=== PATIENT | female | born 1975 | race African-American/Black ===

== ENCOUNTER 2019-11-02 12:19 | Emergency (ER) | payer SELFPAY ==
--- NOTE | 2019-11-02 13:39 | ER ---
Nurse's Notes [facility] Name: Pinky Angel Age: 44 yrs Sex: Female : 1975 Arrival Date: 11/02/2019 Time: 12:22 Bed 11 Private MD: Diagnosis: Encounter for general adult medical examination without abnormal findings;Medical Screening Presentation: 11/01 12:27 Chief complaint: Patient states: Here to be checked for covid since her significant ll1 other is here for chu test. Denies cough/fever. No pain. Coronavirus screen: Proceed with normal triage. Patient denies a cough. Patient denies shortness of breath or difficulty breathing. Patient denies measured and/or subjective temperature greater than 100.4F prior to today's visit. Patient denies travel on a cruise ship or to a country the [facility] currently lists as an affected area. Patient denies contact with known and/or suspected case of COVID-19. Ebola Screen: Patient denies travel to an Ebola-affected area in the 21 days before illness onset. Initial Sepsis Screen: Does the patient meet any 2 criteria? No. Patient's initial sepsis screen is negative. Risk Assessment: Do you want to hurt yourself or someone else? Patient reports no desire to harm self or others. Onset of symptoms was November 02, 2019. 12:27 Method Of Arrival: Ambulatory ll1 12:27 Acuity: DAWNA 5 ll1 Historical: - Allergies: 12:29 PENICILLINS; ll1 - PMHx: 12:29 None; ll1 - PSHx: 12:29 breast lift; ll1 - Social history:: Smoking status: Patient reports the use of cigarette tobacco products, cigars, Patient uses alcohol, occasionally. Patient/guardian denies using street drugs. Screenin:37 Abuse screen: Denies threats or abuse. Denies injuries from another. Nutritional ss screening: No deficits noted. Tuberculosis screening: No symptoms or risk factors identified. Never had TB. Fall Risk None identified. Assessment: 13:37 General: Appears in no apparent distress. comfortable, Behavior is calm, cooperative, ss Denies fever, feeling ill, fatigue, chills. Pain: Denies pain. Neuro: Level of Consciousness is awake, alert, obeys commands, Oriented to person, place, time, situation. Respiratory: Airway is patent Respiratory effort is even, unlabored, Respiratory pattern is regular, symmetrical. GI: No signs and/or symptoms were reported involving the gastrointestinal system. EENT: Nares are clear. Derm: Skin is intact, is healthy with good turgor, Skin is dry, Skin is pink, warm \T\ dry. normal. Musculoskeletal: Circulation, motion, and sensation intact. Range of motion: intact in all extremities, Swelling absent. Vital Signs: 12:27 BP 138 / 81; Pulse 78; Resp 18; Temp 98.3; Pulse Ox 100% ; Pain 0/10; ll1 ED Course: 12:22 Patient arrived in ED. fj1 12:28 Triage completed. ll1 12:29 Arm band placed on Patient notified of wait time. ll1 13:34 Elliott Willis PA is PHCP. jr8 13:34 Brown Valle MD is Attending Physician. jr8 13:37 Patient has correct armband on for positive identification. Bed in low position. Call ss light in reach. 13:37 No provider procedures requiring assistance completed. Patient did not have IV access ss during this emergency room visit. Administered Medications: No medications were administered Outcome: 13:37 Medical screen evaluation completed per provider. Patient declined treatment. ss 13:37 Condition: good 13:37 Instructed on discharge instructions. 13:38 Discharge ordered by . jr8 13:40 Patient left the ED. ss Signatures: Lainey Valerio, RN RN Elliott Willis PA PA jr8 Joao Bran 1 Mireya Goode RN RN 1
--- NOTE | 2019-11-02 13:39 | EDPHYS ---
Physician Documentation [facility] Name: Pinky Angel Age: 44 yrs Sex: Female : 1975 Arrival Date: 11/02/2019 Time: 12:22 Bed 11 Private MD: ED Physician Brown Valle HPI: 11/01 16:06 This 44 yrs old Black Female presents to ER via Ambulatory with complaints of COVID jr8 SYMPTOMS. 16:06 Associated signs and symptoms: The patient has no apparent associated signs or jr8 symptoms. The patient has not experienced similar symptoms in the past. The patient has not recently seen a physician. Patient stated that she was sent to ED by her boss to be tested for COVID. Denies symptoms. Was told it was free of charge to be tested here . Historical: - Allergies: 12:29 PENICILLINS; ll1 - PMHx: 12:29 None; ll1 - PSHx: 12:29 breast lift; ll1 - Social history:: Smoking status: Patient reports the use of cigarette tobacco products, cigars, Patient uses alcohol, occasionally. Patient/guardian denies using street drugs. ROS: 16:06 Eyes: Negative for injury, pain, redness, and discharge, ENT: Negative for injury, jr8 pain, and discharge, Neck: Negative for injury, pain, and swelling, Cardiovascular: Negative for chest pain, palpitations, and edema, Respiratory: Negative for shortness of breath, cough, wheezing, and pleuritic chest pain, Abdomen/GI: Negative for abdominal pain, nausea, vomiting, diarrhea, and constipation, Back: Negative for injury and pain, MS/Extremity: Negative for injury and deformity, Skin: Negative for injury, rash, and discoloration, Neuro: Negative for headache, weakness, numbness, tingling, and seizure. Exam: 16:06 Eyes: Pupils equal round and reactive to light, extra-ocular motions intact. Lids and jr8 lashes normal. Conjunctiva and sclera are non-icteric and not injected. Cornea within normal limits. Periorbital areas with no swelling, redness, or edema. ENT: Nares patent. No nasal discharge, no septal abnormalities noted. Tympanic membranes are normal and external auditory canals are clear. Oropharynx with no redness, swelling, or masses, exudates, or evidence of obstruction, uvula midline. Mucous membranes moist. Neck: Trachea midline, no thyromegaly or masses palpated, and no cervical lymphadenopathy. Supple, full range of motion without nuchal rigidity, or vertebral point tenderness. No Meningismus. Cardiovascular: Regular rate and rhythm with a normal S1 and S2. No gallops, murmurs, or rubs. Normal PMI, no JVD. No pulse deficits. Respiratory: Lungs have equal breath sounds bilaterally, clear to auscultation and percussion. No rales, rhonchi or wheezes noted. No increased work of breathing, no retractions or nasal flaring. Abdomen/GI: Soft, non-tender, with normal bowel sounds. No distension or tympany. No guarding or rebound. No evidence of tenderness throughout. Back: No spinal tenderness. No costovertebral tenderness. Full range of motion. Skin: Warm, dry with normal turgor. Normal color with no rashes, no lesions, and no evidence of cellulitis. MS/ Extremity: Pulses equal, no cyanosis. Neurovascular intact. Full, normal range of motion. Neuro: Awake and alert, GCS 15, oriented to person, place, time, and situation. Cranial nerves II-XII grossly intact. Motor strength 5/5 in all extremities. Sensory grossly intact. Cerebellar exam normal. Normal gait. Vital Signs: 12:27 BP 138 / 81; Pulse 78; Resp 18; Temp 98.3; Pulse Ox 100% ; Pain 0/10; ll1 MDM: 13:35 Patient medically screened. jr8 13:37 Data reviewed: vital signs, nurses notes. Medical screen evaluation completed. [facility] katherine emergency medical condition absent. 16:06 Data interpreted: Pulse oximetry: on room air is 100 %. Interpretation: normal. jr8 Counseling: I had a detailed discussion with the patient and/or guardian regarding: the historical points, exam findings, and any diagnostic results supporting the discharge/admit diagnosis, the need for outpatient follow up. 16:13 ED course: Referred patient to off site testing facility . jr8 Administered Medications: No medications were administered Disposition: 13:37 Encounter for COVID 19 Screening. jr8 19:38 Co-signature as Attending Physician, Brown Valle MD. mh7 Disposition: 11/02/19 13:38 Discharged to Home. Impression: Encounter for general adult medical examination without abnormal findings, Medical Screening . - Condition is Stable. - Discharge Instructions: COVID-19. - Medication Reconciliation Form, Thank You Letter, Antibiotic Education, Prescription Opioid Use form. - Follow up: Private Physician; When: As needed; Reason: Recheck today's complaints, Re-evaluation by your physician. - Problem is new. - Symptoms are unchanged. Signatures: Lainey Valerio RN RN Elliott Willis PA PA jr8 Mireya Goode RN RN ll1 Brown Valle MD MD 7 Corrections: (The following items were deleted from the chart) 13:40 13:38 11/02/2019 13:38 Discharged to Home. Impression: Encounter for general adult ss medical examination without abnormal findings; Medical Screening . Condition is Stable. Forms are Medication Reconciliation Form, Thank You Letter, Antibiotic Education, Prescription Opioid Use. Follow up: Private Physician; When: As needed; Reason: Recheck today's complaints, Re-evaluation by your physician. Problem is new. Symptoms are unchanged. jr8
[2019-11-02 13:53] VITALS: BP 138/81; TEMP 98.3; O2SAT 100
== END 2019-11-02 13:40 | disposition home or self-care (01) ==
LOC: ER 12:19
DX: Z00.00 Encounter for general adult medical examination without abnormal findings (principal)
CPT/HCPCS: 99281

== ENCOUNTER 2020-09-11 01:17 | Emergency (ER) | payer SELFPAY ==
--- OUTSIDE RECORDS SUMMARY | 2020-09-11 01:20 | XMS REPORT | Continuity of Care Document ---
:1975 Author Organization [facility] t Address [address] [place] [address] Care Team Providers Name Role Phone Unavailable Unavailable Unavailable Payers Payer Name Policy Type Policy Number Effective Date Expiration Date S ource Problems This patient has no known problems. Allergies, Adverse Reactions, Alerts Allergy Allergy Status Severity Reaction(s) Onset Inactive Treating Comm ents Source Name Type Date Date Clinician [place] DA Active [facility] ins 01-26 [place] 00:00: Health 00 are [facility] st Medications This patient has no known medications. Procedures This patient has no known procedures. Results Test Description Test Time Test Comments Results Result Comments Source TROPONIN-I 2019-01-26 17:55:00 Test Item Value Reference Range Interpretation Comme nts TROPONIN-I (test code = TROPI) <0.020 ng/mL 0.000-0.034 N BASIC METABOLIC [id number] 17:48:00 Test Item Value Reference Range Interpretation Comments SODIUM (test code 137 mmol/L 135-145 N = NA) POTASSIUM (test 3.3 mmol/L 3.6-5.0 L code = K) CHLORIDE (test 105 mmol/L 101-111 N code = CL) CARBON DIOXIDE 24 mmol/L 21-31 N (test code = CO2) GLUCOSE (test code 94 mg/dl 70-100 N = GLU) BLOOD UREA 12 mg/dl 6-20 N NITROGEN (test code = BUN) GLOMERULAR >=60 max >60 The estimated FILTRATION RATE estimate glomerular (test code = GFR) filtration rate is computed usingpatient ra ce, age (>18), sex, and serum creatinin e. If anyof the neede d data elements a re missing the Laboratory ignacia ot compute an estimation of t he glomerular filtration rate . CREATININE (test 0.95 mg/dL 0.44-1.03 N code = CREAT) CALCIUM (test code 9.1 mg/dL 8.5-10.5 N = CA) [id number] 17:42:00 Test Item Value Reference Range Interpretation Comments D-DIMER (test < 500 ng/mLFEU 0-500 N D-Dimer resu lts are code = DDIMER) reported in n g/mL. These unitscorrespond to ng/mL Fibrinogen Equi valent Units (FEU). Th eD-Dimer cut-off value i s the same as the normal referencerange. A negative D-Dime r result when combined w ith aclinical asses sment of low pretest pro bability has beenshown t o have a high negative p redictive value for deep veinthrombosis (DVT) and pulmonary embol ism (PE). Elevatedlevels of D-Dimer are found in cl inical conditions such asDVT, PE and disseminate d intravascular c oagulation (DIC).D-Dimer l evels also rise during nor mal but v eryhigh levels are asso ciated with complicati ons. CBC W/AUTO [id number] 17:38:00 Test Item Value Reference Range Interpretation Comments WHITE BLOOD CELL (test code = 12.6 x10 3/uL 3.2-11.5 H WBC) RED BLOOD CELL (test code = 4.52 x10(6)/m 3.70-5.10 N RBC) HEMOGLOBIN (test code = HGB) 11.7 g/dL 12.0-15.0 L HEMATOCRIT (test code = HCT) 36.2 % 35.7-44.8 N MEAN CELL VOLUME (test code = 80 fL 80-100 N MCV) MEAN CELL HGB (test code = MCH) 25.9 pg 26.2-33.8 L MEAN CELL HGB CONCENTRATION 32.5 g/dL 30.0-34.0 N (test code = MCHC) RED CELL DISTRIBUTION WIDTH 15.3 % 11.3-14.5 H (test code = RDW) PLATELET COUNT (test code = 379 x10 3/uL 130-408 N PLT) MEAN PLATELET VOLUME (test code 7.8 fl 6.4-10.5 N = MPV) NEUTROPHIL % (test code = NT%) 68.4 % 40.0-70.0 N LYMPHOCYTE % (test code = LY%) 22.7 % 20-40 N MONOCYTE % (test code = MO%) 6.8 % 1-10 N EOSINOPHIL % (test code = EO%) 1.6 % 1.0-5.0 N BASOPHIL % (test code = BA%) 0.5 % 0.0-1.0 N NEUTROPHIL # (test code = NT#) 8.6 x10 3/uL 1.6-7.2 H LYMPHOCYTE # (test code = LY#) 2.90 x10 3/uL 1.1-2.7 H MONOCYTE # (test code = MO#) 0.9 x10 3/uL 0.3-0.8 H EOSINOPHIL # (test code = EO#) 0.2 x10 3/uL 0.0-0.5 N BASOPHIL # (test code = BA#) 0.1 x10 3/uL 0.0-0.1 N - XR CHEST 1 [id number] 17:19:00Patient Name: KRISTINA SAUCEDO Unit No: [id number] EXAMS: CPT: [id number] XR CHEST 1 V 83913 CHEST, 1 VIEW: HISTORY: Chest Pain COMPARISON: No previous pertinent examination is available. FINDINGS: The lungs appear grossly clear. The cardiovascular silhouette is normal. No infiltrates or pulmonary edema is present. No significant pleural effusions are seen IMPRESSION: No acute abnormality is detected. at 1719 Reported and signed by: Jeferson Diaz MD CC: Technologist: Gordon Pinzon Time: DAP (Gy m2): Air Kerma (mGy): Trscr Dt/Tm: 01/26/2019 (862) by:[email or web address] Orig Print D/T: S: 01/26/2019 (3402) BATCH NO: N/A Name: KRISTINA SAUCEDO [facility] Phys: PELLE - Peleg,Leeor B DO [address] [facility] : 1975 Age: 44 [place]: [place] [id number] Loc: N.ERS Exam Date: 01/26/2019 Status: PRE ER PH: FAX: PAGE 1 Signed Report
[2020-09-11 02:35] LABS: Absolute Lymphocytes (CBC) 4.1 K/uL (0.7-4.9); Basophils % 0.7 % (0-1.3); Hematocrit 33.4 % (36.0-45.0); Lymphocytes % 33.6 % (15.3-44.8); MPV 8.4 fL (7.6-11.3); RBC Red Blood Cell Count 4.39 M/uL (3.86-4.86)
[2020-09-11] MEDS ORDERED: MEPERIDINE HCL 25 MG/ML SYR ONE (02:42)
[2020-09-11 02:47] LABS: BUN Blood Urea Nitrogen 9 mg/dL (7-18); Bicarbonate 27 mmol/L (21-32); Glucose Level 87 mg/dL (74-106); Magnesium 2.1 mg/dL (1.8-2.4); NT PRO-BNP 95 pg/mL (<125); Potassium 3.4 mmol/L (3.5-5.1); Sodium Level 141 mmol/L (136-145); Troponin (Emerg Dept Use Only) < 0.02 ng/mL (0.0-0.045)
--- NOTE | 2020-09-11 03:20 | EDPHYS ---
Physician Documentation [facility] Name: Pinky Angel Age: 45 yrs Sex: Female : 1975 Arrival Date: 09/11/2020 Time: 01:19 Bed 3 Private MD: ED Physician Juancarlos Celeste HPI: 09/11 03:14 This 45 yrs old Black Female presents to ER via Ambulatory with complaints of Chest rn Pain. 03:14 The patient or guardian reports chest pain that is located primarily in the anterior rn chest wall, left. Onset: just prior to arrival. The pain radiates to the left shoulder. Associated signs and symptoms: Pertinent positives: None. Pertinent negatives: abdominal pain, cough, diaphoresis, dizziness, lightheadedness, palpitations, shortness of breath, syncope, vomiting. The chest pain is described as aching. Duration: The patient or guardian reports multiple episodes, that are intermittent. Modifying factors: The symptoms are alleviated by nothing. the symptoms are aggravated by movement, palpation of area. Severity of pain: At its worst the pain was moderate in the emergency department the pain has improved. The patient has experienced a previous episode. The patient has not recently seen a physician. Reports left sided chest pain, began prior to arrival while at rest, no trauma, radiates to left shoulder and hurts to touch and move left arm. Reports has had before and told was muscle spasm. No fever/cough/sob. . 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 - Social history:: Smoking status: unknown. - Family history:: not pertinent. - Hospitalizations: : No recent hospitalization is reported. ROS: 03:14 Constitutional: Negative for fever, chills, and weight loss, Eyes: Negative for injury, rn pain, redness, and discharge, Neck: Negative for injury, pain, and swelling, Cardiovascular: Negative for palpitations, and edema, Respiratory: Negative for shortness of breath, cough, wheezing, and pleuritic chest pain, Abdomen/GI: Negative for abdominal pain, nausea, vomiting, diarrhea, and constipation, Back: Negative for injury and pain, MS/Extremity: Negative for injury and deformity, Skin: Negative for injury, rash, and discoloration, Neuro: Negative for headache, weakness, numbness, tingling, and seizure. Exam: 03:14 Constitutional: This is a well developed, well nourished patient who is awake, alert, rn and in no acute distress. Head/Face: Normocephalic, atraumatic. Eyes: Pupils equal round and reactive to light, extra-ocular motions intact. Lids and lashes normal. Conjunctiva and sclera are non-icteric and not injected. Cornea within normal limits. Periorbital areas with no swelling, redness, or edema. Neck: Trachea midline, no thyromegaly or masses palpated, and no cervical lymphadenopathy. Supple, full range of motion without nuchal rigidity, or vertebral point tenderness. No Meningismus. Chest/axilla: + reproducible left anterior chest pain with palpation and movement of left arm. Cardiovascular: Regular rate and rhythm. No pulse deficits. Respiratory: No increased work of breathing, no retractions or nasal flaring. Abdomen/GI: soft, non-tender Skin: Warm, dry with normal turgor. Normal color with no rashes, no lesions, and no evidence of cellulitis. MS/ Extremity: Pulses equal, no cyanosis. Neurovascular intact. Full, normal range of motion. Equal circumference. Neuro: Awake and alert, GCS 15, oriented to person, place, time, and situation 03:14 ECG was reviewed by the Attending Physician. Vital Signs: 01:50 BP 154 / 97; Pulse 74; Resp 18 S; Temp 98.2(O); Pulse Ox 100% on R/A; Weight 90.72 kg bb (R); Height 5 ft. 7 in. (170.18 cm) (R); Pain 6/10; 02:02 BP 142 / 79; Pulse 66; Resp 18; Temp 97.5; Pulse Ox 99% on R/A; ad5 03:21 BP 149 / 86; Pulse 74; Resp 20; Pulse Ox 98% on R/A; ad5 01:50 Body Mass Index 31.32 (90.72 kg, 170.18 cm) bb MDM: 01:50 Patient medically screened. rn 03:14 Differential diagnosis: acute myocardial infarction, acute pericarditis, anxiety, rn coronary artery disease chest wall pain, costochondritis, esophagitis, gastritis, pleurisy, MSk pain. Data reviewed: vital signs, nurses notes, lab test result(s), EKG, radiologic studies, plain films, and as a result, I will discharge patient. Counseling: I had a detailed discussion with the patient and/or guardian regarding: the historical points, exam findings, and any diagnostic results supporting the discharge/admit diagnosis, lab results, radiology results, the need for outpatient follow up, to return to the emergency department if symptoms worsen or persist or if there are any questions or concerns that arise at home. Response to treatment: the patient's symptoms have mildly improved after treatment, and as a result, I will discharge patient. Special discussion: Based on the patient's history, exam, and Dx evaluation, there is no indication for emergent intervention or inpatient Tx. It is understood by the patient/guardian that if the Sx's persist or worsen they need to return immediately for re-evaluation. I discussed with the patient/guardian in detail that at this point there is no indication for admission to the hospital. It is understood, however, that if the symptoms persist or worsen the patient needs to return immediately for re-evaluation. ED course: Trop/ddimer neg, ecg normal, stable vitals, reproducible left anterior chest pain. Will dc home with prn motrin and return precautions. . 03:25 ED course: pt states last time she had this got better with muscle relaxer.. rn 09/11 02:08 Order name: Basic Metabolic Panel rn 09/11 02:08 Order name: CBC with Diff rn 09/11 02:08 Order name: Magnesium; Complete Time: 03:14 rn 09/11 02:08 Order name: NT PRO-BNP; Complete Time: 03:14 rn 09/11 02:08 Order name: Troponin (emerg Dept Use Only); Complete Time: 03:14 rn 09/11 02:08 Order name: D-Dimer; Complete Time: 03:14 rn 09/11 02:08 Order name: XRAY Chest (1 view) rn 09/11 02:08 Order name: EKG; Complete Time: 02:09 rn 09/11 02:08 Order name: Cardiac monitoring; Complete Time: 02:11 rn 09/11 02:08 Order name: EKG - Nurse/Tech; Complete Time: 02:11 rn 09/11 02:08 Order name: Basic Metabolic Panel; Complete Time: 03:14 EDMS 09/11 02:08 Order name: CBC with Automated Diff; Complete Time: 03:14 EDMS 09/11 02:08 Order name: IV Saline Lock; Complete Time: 02:11 rn 09/11 02:08 Order name: Labs collected and sent; Complete Time: 02:29 rn 09/11 02:08 Order name: O2 Per Protocol; Complete Time: 02:48 rn 09/11 02:08 Order name: O2 Sat Monitoring; Complete Time: 02:29 rn EC:14 Rate is 64 beats/min. Rhythm is regular. QRS [place] is Normal. [place] interval is normal. QRS rn interval is normal. QT interval is normal. No Q waves. T waves are Normal. No ST changes noted. Clinical impression: Normal ECG. Interpreted by me. Reviewed by me. Administered Medications: :29 Drug: Demerol (meperidine) 12.5 mg Route: IVP; Site: right antecubital; ad5 03:21 Follow up: Response: No adverse reaction ad5 03:28 Drug: TORadol (ketorolac) 30 mg Route: IVP; Site: Other; ad5 Disposition: 09/11/20 03:20 Discharged to Home. Impression: Chest pain, unspecified. - Condition is Stable. - Discharge Instructions: Nonspecific Chest Pain, Chest Wall Pain. - Prescriptions for Cyclobenzaprine 10 mg Oral Tablet - take 1 tablet by ORAL route every 8 hours As needed; 15 tablet. - Medication Reconciliation Form, Thank You Letter, Antibiotic Education, Prescription Opioid Use, Work release form form. - Follow up: Private Physician; When: As needed; Reason: Recheck today's complaints, Re-evaluation by your physician. - Problem is new. - Symptoms have improved. Signatures: Dispatcher [employer] EDEstefany Hall RN RN bb Nieto, Roman, MD MD rn Davidson, Andrea ad5 Corrections: (The following items were deleted from the chart) 03:41 03:20 09/11/2020 03:20 Discharged to Home. Impression: Chest pain, unspecified. ad5 Condition is Stable. Forms are Medication Reconciliation Form, Thank You Letter, Antibiotic Education, Prescription Opioid Use. Follow up: Private Physician; When: As needed; Reason: Recheck today's complaints, Re-evaluation by your physician. Problem is new. Symptoms have improved. rn
--- NOTE | 2020-09-11 03:20 | ER ---
Nurse's Notes [facility] Name: Pinky Angel Age: 45 yrs Sex: Female : 1975 Arrival Date: 09/11/2020 Time: 01:19 Bed 3 Private MD: Diagnosis: Chest pain, unspecified Presentation: 09/11 01:50 Chief complaint: Patient states: she started having chest pain radiating into her neck bb at approx 0000 while she was watching TV. Coronavirus screen: At this time, the client does not indicate any symptoms associated with coronavirus-19. Ebola Screen: No symptoms or risks identified at this time. Initial Sepsis Screen: Does the patient meet any 2 criteria? No. Patient's initial sepsis screen is negative. Does the patient have a suspected source of infection? No. Patient's initial sepsis screen is negative. Risk Assessment: Do you want to hurt yourself or someone else? Patient reports no desire to harm self or others. Onset of symptoms was September 11, 2020. 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 - Social history:: Smoking status: unknown. - Family history:: not pertinent. - Hospitalizations: : No recent hospitalization is reported. Screenin:58 Abuse screen: Denies threats or abuse. Nutritional screening: No deficits noted. ea Tuberculosis screening: No symptoms or risk factors identified. Fall Risk IV access (20 points). Assessment: 01:57 General: Appears distressed, uncomfortable, Behavior is cooperative, appropriate for ad5 age, anxious. Pain: Complains of pain in left clavicle and anterior aspect of left upper chest Pain radiates to left supraclavicular area Pain at worst was 10 out of 10 on a pain scale. Quality of pain is described as sharp, Pain began suddenly, 2 hours ago. Alleviated by nothing. Aggravated by repositioning, palpation. Neuro: Level of Consciousness is awake, alert, obeys commands, Oriented to person, place, time, situation, Appropriate for age Fruit Cutter are equal bilaterally pt reports difficulty moving LUE d/t pain. Gait is steady, Speech is normal, Facial symmetry appears normal, Pupils are PERRLA, Intact. Cardiovascular: Reports chest pain, lightheadedness, Denies nausea, shortness of breath, vomiting, Heart tones S1 Capillary refill < 3 seconds Clubbing of nail beds is absent JVD is absent Patient's skin is warm and dry. Pulses are all present. Rhythm is regular Chest pain is described as severe, quality is sharp, is located in left chest wall radiates to left neck began 2 hours prior to arrival episodes are continuous. Respiratory: No deficits noted. Airway is patent Trachea midline Respiratory effort is even, unlabored, Respiratory pattern is regular, symmetrical, Breath sounds are clear bilaterally. GI: No deficits noted. Abdomen is flat, Bowel sounds present X 4 quads. Abd is soft and non tender X 4 quads. : No deficits noted. EENT: No deficits noted. Derm: No deficits noted. Musculoskeletal: Circulation, motion, and sensation intact. Capillary refill < 3 seconds, Range of motion: limited in left shoulder and left elbow Swelling absent Tenderness present in left clavicle and anterior aspect of left upper chest Reports pain in left arm. 02:04 Reassessment: Patient and/or family updated on plan of care and expected duration. Pain ea level reassessed. Patient is alert, oriented x 3, equal unlabored respirations, skin warm/dry/pink. Awaiting on ultrasounds. 03:20 Also complains of no other symptoms. Reassessment: Patient appears in no apparent ad5 distress at this time. Patient and/or family updated on plan of care and expected duration. Pain level reassessed. Patient states symptoms have improved. Pain: Pain currently is 7 out of 10 on a pain scale. Vital Signs: 01:50 BP 154 / 97; Pulse 74; Resp 18 S; Temp 98.2(O); Pulse Ox 100% on R/A; Weight 90.72 kg bb (R); Height 5 ft. 7 in. (170.18 cm) (R); Pain 6/10; 02:02 BP 142 / 79; Pulse 66; Resp 18; Temp 97.5; Pulse Ox 99% on R/A; ad5 03:21 BP 149 / 86; Pulse 74; Resp 20; Pulse Ox 98% on R/A; ad5 01:50 Body Mass Index 31.32 (90.72 kg, 170.18 cm) xavi ED Course: 01:19 Patient arrived in ED. es 01:50 Juancarlos Celeste MD is Attending Physician. rn 01:52 Triage completed. bb 01:52 Arm band placed on Patient placed in an exam room, on a stretcher, on cardiac catheterization technician, bb on pulse oximetry. EKG completed in triage. Results shown to MD. 01:57 Joe Borjas is Primary Nurse. ad5 01:59 Patient has correct armband on for positive identification. Placed in gown. Bed in low ea position. Call light in reach. Side rails up X2. processing operator on. Pulse ox on. NIBP on. 01:59 Patient maintains SpO2 saturation greater than 95% on room air. ea 02:04 No provider procedures requiring assistance completed. Inserted saline lock: 20 gauge ad5 in left antecubital area, using aseptic technique. 02:10 Initial lab(s) drawn, by de, sent to lab. EKG done. ad5 02:25 XRAY Chest (1 view) In Process Unspecified. EDMS 02:29 CBC with Automated Diff Sent. ad5 02:29 Basic Metabolic Panel Sent. ad5 02:30 Basic Metabolic Panel Sent. ad5 02:30 CBC with Diff Sent. ad5 02:30 Magnesium Sent. ad5 02:30 NT PRO-BNP Sent. ad5 02:30 Troponin (emerg Dept Use Only) Sent. ad5 03:24 IV discontinued, intact, bleeding controlled, No redness/swelling at site. Pressure ad5 dressing applied. Administered Medications: 02:29 Drug: Demerol (meperidine) 12.5 mg Route: IVP; Site: right antecubital; ad5 03:21 Follow up: Response: No adverse reaction ad5 03:28 Drug: TORadol (ketorolac) 30 mg Route: IVP; Site: Other; ad5 Outcome: 03:20 Discharge ordered by . rn 03:24 Discharged to home ambulatory. ad5 03:24 Discharged to home ambulatory. ad5 03:24 Condition: stable 03:24 Discharge instructions given to patient, Instructed on discharge instructions, follow up and referral plans. 03:41 Patient left the ED. ad5 Signatures: Dispatcher [employer] EDEmily Scott Brenda, RN RN bb Nieto, Roman, MD MD rn Antunez, Elena, RN RN ea Davidson, Andrea ad5
[2020-09-11] MEDS ORDERED: KETOROLAC 30 MG/ML INJ ONE (03:47)
[2020-09-11 04:08] VITALS: TEMP 97.5
[2020-09-11 04:10] VITALS: BP 149/86; O2SAT 98
--- NOTE | 2020-09-11 07:14 | RAD REPORT ---
EXAM DESCRIPTION: [facility] Single View09/11/2020 2:26 am CLINICAL HISTORY: Chest pain COMPARISON: none FINDINGS: The lungs appear clear of acute infiltrate. The heart is normal size IMPRESSION: No acute abnormalities displayed
--- NOTE | 2020-09-12 07:21 | EKG ---
Test Date: 2020-09-11 Test Time: 01:50:50 Agricultural Scientist: JUJU MEASUREMENT RESULTS: Intervals: Rate: 64 MO: 158 QRSD: 90 QT: 412 QTc: 425 [place]: P: 42 MO: 158 QRS: -7 T: 22 INTERPRETIVE STATEMENTS: Normal sinus rhythm Normal ECG No previous ECG available for comparison Electronically Signed On 09-12-20 07:18:15 CDT by Ra Lehman
[2020-09-27] MEDS ORDERED: propofoL 1,000 MG/100 ML VIAL IV ONE (02:28)
== END 2020-09-11 03:41 | disposition home or self-care (01) ==
LOC: ER 01:17
DX: R07.89 Other chest pain (principal); Z88.0 Allergy status to penicillin
CPT/HCPCS: 36415; 71045; 80048; 83735; 83880; 84484; 85025; 85379; 93005; 99285; J2175